=== PATIENT | female | born 1995 ===

== ENCOUNTER 2017-04-24 03:17 | Emergency (ER) | payer BC ==
[2017-04-24 03:23] VITALS: BP 143/74; PULSE 76; RESP 16; TEMP 98.1; O2SAT 97
--- NOTE | 2017-04-24 03:41 | ED PDOC ---
HPI: Female Pain Chief Complaint (Provider): Burning on urinatin History Per: Patient History/Exam Limitations: no limitations Onset/Duration Of Symptoms: Hrs (2) Current Symptoms Are (Timing): Still Present Severity: Mild Ant/Post Bofy Image: 1 - Urethral burning Quality Of Discomfort: Sharp, Burning Associated Symptoms: Urinary Symptoms Alleviating Factors: None Additional Complaint(s): Consuelo De Leon is a pleasant 21 yo lady with PMHx of Anxiety, panic, and GERD presents to the ED with 2 hr history of dysuria. She shares that suddenly, she experienced burning periurethral. Pain worse with urination. Denies hematuria. She shares that symptoms are similar to her last dx of UTI and vaginitis in December 2016. She denies abnormal vaginal discharge or increased urinary frequency. FHx: HTN Surg: Gastric band, sleeve, appendectomy, cholecystectomy LMP: 03/21/2017; IUD in place Soc: denies smoking or illicit drugs; shares of light social drinking (less than twice a month); last intercourse 2 days ago. NKDA Rx: omeprazole, seroquel Abnormal Vaginal Bleeding: No Last Menstral Period: 03/21/2017 : 1 Para: 0 Miscarriage: 1 <Tan Matamoros - Last Filed: 04/24/17 05:24> <Lai Aguilar - Last Filed: 04/26/17 02:06> Time Seen by Provider: 04/24/17 03:31 Chief Complaint (Nursing): Female Genitourinary Past Medical History Vital Signs: Last Vital Signs Temp 98.1 F 04/24/17 03:21 Pulse 76 04/24/17 03:21 Resp 16 04/24/17 03:21 BP 143/74 04/24/17 03:21 Pulse Ox 97 04/24/17 03:21 - Medical History PMH: Anxiety, GERD Other PMH: Panic - Surgical History Surgical History: Appendectomy Other surgeries: Gastric band, sleeve, gallbladder - Family History Family History: States: Hypertension - Social History Current smoker - smoking cessation education provided: No Alcohol: Social Drugs: Denies <Tan Matamoros Last Filed: 04/24/17 05:24> Vital Signs: Last Vital Signs Temp 98.1 F 04/24/17 03:21 Pulse 76 04/24/17 03:21 Resp 16 04/24/17 03:21 BP 143/74 04/24/17 03:21 Pulse Ox 97 04/24/17 05:24 <Lai Aguilar Caleb - Last Filed: 04/26/17 02:06> - Home Medications Home Medications: Ambulatory Orders Medication Instructions Recorded Nitrofurantoin Macrocrystals 100 mg PO BID #14 cap 04/24/17 [Macrobid] - Allergies Allergies/Adverse Reactions: Allergies Allergy/AdvReac Type Severity Reaction Status Date / Time No Known Allergies Allergy Verified 09/26/14 23:14 Review of Systems Genitourinary Female: Positive for: Dysuria <Tan Matamoros Filed: 04/24/17 05:24> Physical Exam - Physical Exam Appears: Positive for: No Acute Distress Skin: Positive for: Normal Color, Warm, Dry Eye Exam: Positive for: EOMI. Negative for: Nystagmus Cardiovascular/Chest: Positive for: Regular Rate, Rhythm, Chest Non Tender Respiratory: Positive for: Normal Breath Sounds. Negative for: Wheezing Gastrointestinal/Abdominal: Positive for: Bowel Sounds, Soft. Negative for: Tenderness Back: Negative for: L CVA Tenderness, R CVA Tenderness Neurologic/Psych: Positive for: Alert, clinical data management director II-XII, Oriented, Gait <Tan Matamoros Filed: 04/24/17 05:24> - ECG O2 Sat by Pulse Oximetry: 97 <Tan Matamoros Filed: 04/24/17 05:24> Medical Decision Making Medical Decision Making: pt with uti <Lauren,Lai Ellis - Last Filed: 04/26/17 02:06> Disposition - Disposition Disposition: Routine/Home Disposition Time: 05:15 <Tan Matamoros Filed: 04/24/17 05:24> - Patient ED Disposition Is Patient to be Admitted: No <Lai Aguilar Caleb - Last Filed: 04/26/17 02:06> - Clinical Impression Clinical Impression: UTI (urinary tract infection) - Disposition Condition: IMPROVED Additional Instructions: follow up with your primary doctor in 1-2 days return to the ED with any worsening or concerning symptoms Prescriptions: Nitrofurantoin Macrocrystals [Macrobid] 100 mg PO BID #14 cap Instructions: Urinary Tract Infection in Women (ED) Forms: [facility] ([place])
[2017-04-24 04:48] LABS: RBC URINE 12 /hpf (0-3); URINE BACTERIA RARE (<OCC); URINE BILIRUBIN NEGATIVE (NEGATIVE); URINE BLOOD NEGATIVE (NEGATIVE); URINE COLOR YELLOW (YELLOW); URINE GLUCOSE (UA) NEG (Normal); URINE KETONE NEGATIVE (NEGATIVE); URINE LEUKOCYTE ESTERASE LARGE Leu/uL (Negative); URINE PROTEIN 30 mg/dL (NEGATIVE); URINE UROBILINOGEN 0.2-1.0 mg/dL (0.2-1.0); WBC URINE 794 /hpf (0-5)
[2017-04-24] MEDS ORDERED: Nitrofurantoin 25 MG/5 ML SUSP PO ONE (05:22)
== END 2017-04-24 05:44 | disposition home or self-care (01) ==
LOC: H.ER 03:17
DX: N39.0 Urinary tract infection, site not specified (principal); K21.9 Gastro-esophageal reflux disease without esophagitis; F41.9 Anxiety disorder, unspecified